=== PATIENT | female | born 1985 | race Caucasian/White ===

== ENCOUNTER → 2019-09-05 | Outpatient (REF) | payer OTHER ==
[~2019-09-05] MED LIST: ASPI81TA85 PO; MIRE1IUD IU; SOLUMEDROL IV
[2019-09-05 20:19] LABS: FOLATE > 24.0 NG/ML; RHEUMATOID FACTOR QUANT < 10.0 IU/ML (<15.0); TOTAL PROTEIN 7.2 GM/DL (6.4-8.2); VITAMIN B12 LEVEL 251 PG/ML
[2019-09-10 10:55] LABS: ALBUMIN 4.59 GM/DL (3.29-5.55); ALBUMIN % 63.7 % (55.8-66.1); ALPHA-1-GLOBULIN % 3.8 % (2.9-4.9); ALPHA-1-GLOBULINS 0.27 GM/DL (0.17-0.41); ALPHA-2-GLOBULINS 0.56 GM/DL (0.42-0.99); ALPHA-2-GLOBULINS % 7.8 % (7.1-11.8); BETA-1-GLOBULINS 0.41 GM/DL (0.28-0.60); BETA-1-GLOBULINS % 5.7 % (4.7-7.2); BETA-2-GLOBULINS 0.32 GM/DL (0.19-0.55); BETA-2-GLOBULINS % 4.5 % (3.2-6.5); GAMMA GLOBULIN % 14.5 % (11.1-18.8); GAMMA GLOBULINS 1.04 GM/DL (0.65-1.58)
[2019-09-10 11:18] LABS: DRVV SCREEN 35.9 SEC
[2019-09-10 11:19] LABS: PTT LUPUS TYPE ANTICOAG SCREEN 0.9 (0-1.2)
[2019-09-13 14:12] LABS: ACETYLCHOLINE RCPTOR BINDING A < 0.03 nmol/L (0.00-0.24); ACETYLCHOLINE RCPTOR BLOCK AB 17 % (0-25); ACETYLCHOLINE RCPTOR MODULATIN <12 % (0-20); ANCA-ATYPICAL <1:20 titer (Neg:<1:20); ANGIOTENSIN 1 CONVERTING ENZYM 43 U/L (14-82); ANTI DS-DNA AB Negative (Negative); ANTINUCLEAR ANTIBODIES DIRECT Negative (Negative); CYTOPLASMIC NEUTROP AB ANCA-C <1:20 titer (Neg:<1:20); Lyme Disease IgG/IgM Antibodie <0.91 ISR (0.00-0.90); Lyme Disease IgM Ab Quantitati <0.80 index (0.00-0.79); PERINUCLEAR AB ANCA-P <1:20 titer (Neg:<1:20); SJOGREN'S ANTI SS-A <0.2 AI (0.0-0.9); SJOGREN'S ANTI SS-B <0.2 AI (0.0-0.9); VITAMIN B1 LEVEL WHOLE BLOOD 155.8 nmol/L (66.5-200.0); VITAMIN B6,PYRIDOXAL PHOSPHATE 9.9 ug/L (2.0-32.8); VITAMIN E(ALPHA TOCOPHEROL) 7.9 mg/L (5.9-19.4); VITAMIN E(GAMMA TOCOPHEROL) 1.1 mg/L (0.7-4.9)
== END ==
LOC: M LABNEURO 15:42
PROVIDERS: ATTEND Psychiatry & Neurology Neurology
DX: G35 Multiple sclerosis (principal); H53.2 Diplopia

== ENCOUNTER 2019-09-09 16:24 | Outpatient (CLI) | payer OTHER ==
[~2019-09-09] VITALS: Ht 160 cm; Wt 93.6 kg
[2019-09-09 16:45] VITALS: BP 124/72
[2019-09-09] MEDS ORDERED: methylPREDNISolone 1,000 MG, VIAL MATE ADAPTER 1 EACH in D5W 250 ML IV ONE (17:00)
[2019-09-09 18:20] VITALS: BP 128/63
[2019-09-10] MEDS ORDERED: MIRE1IUD IU (17:29)
[2019-09-10] MEDS ORDERED: ASPI81TA85 PO (17:29)
[2019-09-10] MEDS ORDERED: SOLUMEDROL IV (17:30)
== END 2019-09-09 18:20 | disposition home or self-care (01) ==
LOC: M INFU 16:24
PROVIDERS: ATTEND Psychiatry & Neurology Neurology
DX: G35 Multiple sclerosis (principal); Z88.0 Allergy status to penicillin
CPT/HCPCS: 96365; J2930

== ENCOUNTER → 2019-09-09 | Outpatient (REF) | payer OTHER ==
[2019-09-11 10:58] LABS: HEPATITIS B SURFACE ANTIBODY POSITIVE (POSITIVE)
== END ==
LOC: M LABNEURO 15:21
PROVIDERS: ATTEND Psychiatry & Neurology Neurology
DX: G35 Multiple sclerosis (principal)

== ENCOUNTER 2019-09-10 16:59 | Outpatient (CLI) | payer OTHER ==
[~2019-09-10] VITALS: Ht 160 cm; Wt 93.6 kg
[~2019-09-10 16:59] MED LIST changes: -ASPI81TA85 PO; -MIRE1IUD IU; -SOLUMEDROL IV; +methylPREDNISolone 1,000 MG, VIAL MATE ADAPTER 1 EACH in D5W 250 ML IV ONE
[2019-09-10 17:00] VITALS: BP 123/65
[2019-09-10] MEDS ORDERED: MIRE1IUD IU (17:29)
[2019-09-10] MEDS ORDERED: ASPI81TA85 PO (17:29)
[2019-09-10] MEDS ORDERED: SOLUMEDROL IV (17:30)
[2019-09-10 18:57] VITALS: BP 130/74
== END 2019-09-10 19:02 | disposition home or self-care (01) ==
LOC: M INFU 16:59
PROVIDERS: ATTEND Psychiatry & Neurology Neurology
DX: G35 Multiple sclerosis (principal)
CPT/HCPCS: 96365; 96366; J2930

== ENCOUNTER 2019-09-11 15:41 | Outpatient (CLI) | payer OTHER ==
[~2019-09-11] VITALS: Ht 160 cm; Wt 93.6 kg
[~2019-09-11 15:41] MED LIST changes: +ASPI81TA85 PO; +MIRE1IUD IU; +SOLUMEDROL IV; -methylPREDNISolone 1,000 MG, VIAL MATE ADAPTER 1 EACH in D5W 250 ML IV ONE
[2019-09-11 15:50] VITALS: BP 127/65
[2019-09-11] MEDS ORDERED: methylPREDNISolone 1,000 MG, VIAL MATE ADAPTER 1 EACH in D5W 250 ML IV ONE (16:00)
[2019-09-11 18:28] VITALS: BP 143/76
== END 2019-09-11 18:25 | disposition home or self-care (01) ==
LOC: M INFU 15:41
PROVIDERS: ATTEND Psychiatry & Neurology Neurology
DX: G35 Multiple sclerosis (principal)
CPT/HCPCS: 96365; 96366; J2930

== ENCOUNTER 2019-09-12 15:55 | Outpatient (CLI) | payer OTHER ==
[~2019-09-12] VITALS: Ht 160 cm; Wt 93.6 kg
[~2019-09-12 15:55] MED LIST changes: +methylPREDNISolone 1,000 MG, VIAL MATE ADAPTER 1 EACH in D5W 250 ML IV ONE
[2019-09-12 16:00] VITALS: BP 128/67
[2019-09-12 18:19] VITALS: BP 137/65
== END 2019-09-12 18:19 | disposition home or self-care (01) ==
LOC: M INFU 15:55
PROVIDERS: ATTEND Psychiatry & Neurology Neurology
DX: G35 Multiple sclerosis (principal); Z88.0 Allergy status to penicillin; Z88.1 Allergy status to other antibiotic agents
CPT/HCPCS: 96365; 96366; J2930

== ENCOUNTER 2019-09-13 15:18 | Outpatient (CLI) | payer OTHER ==
[~2019-09-13] VITALS: Ht 160 cm; Wt 93.6 kg
[~2019-09-13 15:18] MED LIST changes: -methylPREDNISolone 1,000 MG, VIAL MATE ADAPTER 1 EACH in D5W 250 ML IV ONE
[2019-09-13 15:30] VITALS: BP 139/67
[2019-09-13] MEDS ORDERED: methylPREDNISolone 1,000 MG, VIAL MATE ADAPTER 1 EACH in D5W 250 ML IV ONE (15:30)
[2019-09-13 17:17] VITALS: BP 152/74
[2019-09-13 18:04] VITALS: BP 162/77
== END 2019-09-13 18:05 | disposition home or self-care (01) ==
LOC: M INFU 15:18
PROVIDERS: ATTEND Psychiatry & Neurology Neurology
DX: G35 Multiple sclerosis (principal); Z88.0 Allergy status to penicillin
CPT/HCPCS: 96365; 96366; J2930

== ENCOUNTER → 2019-11-15 | Outpatient (CLI) | payer OTHER ==
--- NOTE | 2019-11-29 03:52 | ECWPNPC ---
PATIENT NAME: HARJINDER PAGAN : 1985 GENDER: FEMALE VISIT DATE: 11/15/2019 DISCHARGE DATE: 11/15/19 1449 VISIT LOCKED DATE TIME: PHYSICIAN: BEBA VELASQUEZ MD RESOURCE: BEBA VELASQUEZ MD REASON FOR APPOINTMENT 1. SPINAL TAP PRE-OP HISTORY OF PRESENT ILLNESS HISTORY OF PRESENT ILLNESS: PAIN THE PATIENT DESCRIBES THE PAIN... 34-YEAR-OLD FEMALE PATIENT WITH A HISTORY OF NEUROLOGICAL CHANGES WITH HER VISION. THE PATIENT STATES THAT SHE SAW AN BILINGUAL TRAINER IN AUGUST OF 2019, BUT SHE CLAIMS THE BILINGUAL TRAINER STATED THAT SHE HAD 20/20 VISION IN SPITE OF HER SENSING A LOSS OF VISION. THE PATIENT STATES THAT VISION IN HER LEFT EYE IS AFFECTED, AND THAT SHE CAN SEE WITHOUT DIFFICULTY WITH HER RIGHT EYE. SHE SAYS THE VISION LOSS IS AFFECTING HER ABILITY TO PERFORM DAILY ACTIVITIES SUCH READING. THE PATIENT DOES NOT REPORT ANY DIFFICULTIES WITH HER BALANCE. THE PATIENT WAS REFERRED TO OUR CLINIC BY DR. METCALF FOR A SPINAL TAP. SHE MENTIONS THAT SHE HAS BEEN SUFFERING WITH NECK AND LOW BACK PROBLEMS FOR MANY YEARS AND HAS "ISSUES ROTATING ARMS." THE PATIENT STATES THAT SHE HAS NO PAIN OR NUMBNESS IN HER LEGS. PATIENT DENIES UNEXPLAINABLE WEIGHT LOSS, FEVER, CHILLS, NEW CHANGES IN HER URINARY OR BOWEL CONTROL. FALL RISK SCREENING: SCREENING :NO FALLS REPORTED IN THE LAST YEAR CURRENT MEDICATIONS TAKING MIRENA (52 MG) 20 MCG/24HR INTRAUTERINE DEVICE DIRECTED INTRAUTERINE MEDICATION LIST REVIEWED AND RECONCILED WITH THE PATIENT PAST MEDICAL HISTORY MULTIPLE SCLEROSIS CHRONIC LOW BACK PAIN ALLERGIES PENICILLIN (FOR ALLERGIES USE ONLY): ANAPHYLAXIS - ALLERGY AMOXICILLIN: ANAPHYLAXIS - ALLERGY SURGICAL HISTORY APPENDECTOMY FAMILY HISTORY FATHER: ALIVE, DIAGNOSED WITH HYPERTENSION MOTHER: ALIVE, DIABETES, HYPERTENSION, OTHER MALIGNANT NEOPLASM OF UNSPECIFIED SITE 1 BROTHER(S) , 1 SISTER(S) - HEALTHY. 2 SON(S) , 1 DAUGHTER(S) - HEALTHY. MOTHER LUNG CANCER. SOCIAL HISTORY GENERAL: TOBACCO USE ARE YOU A:CURRENT SMOKER ARE YOU INTERESTED IN QUITTING?THINKING ABOUT QUITTING COUNSELED THE PATIENT ON SMOKING CESSATION, EDUCATION [id number]/24/2020 HOW MANY CIGARETTES A DAY DO YOU SMOKE?5 OR LESS LATEX QUESTIONNAIRE LATEX ALLERGY : HAVE YOU EVER DEVELOPED ANY TYPE OF REACTION AFTER HANDLING LATEX PRODUCTS SUCH RUBBER GLOVES, CONDOMS, DIAPHRAGMS, BALLOONS, SOCKS, OR UNDERWEAR?NO LATEX ALLERGY : HAVE YOU EVER DEVELOPED ANY TYPE OF REACTION DURING OR AFTER DENTAL APPOINTMENT, VAGINAL/RECTAL EXAMINATION, SURGICAL PROCEDURE, OR ANY OTHER EXPOSURE?NO LATEX RISK : HAVE YOU EVER HAD ANY DIFFICULTY BREATHING OR HIVES AFTER EATING OR HANDLING ANY FRUITS, OR VEGETABLES; SUCH KIWI, BANANAS, STONE FRUITS, OR CHESTNUTSNO LATEX RISK : DO YOU HAVE A PREVIOUS PERSONAL HISTORY OF MORE THAN NINE SURGERIES, SPINA BIFIDA, OR REPEATED CATHERIZATIONS? NO LATEX RISK : ARE YOU FREQUENTLY EXPOSED TO LATEX PRODUCTS IN YOUR OCCUPATION?NO DATE ASKED : 11/15/2019 CAFFEINE CAFFEINE USE?YES HOW OFTEN AND HOW MUCH? COFFEE 2 CUPS DAILY DIET: REGULAR. EPISCOPALIAN EPISCOPALIAN NO BUDDHIST BELIEFS THAT WOULD IMPACT HEALTH CARE. LANGUAGE LANGUAGES SPOKEN:[place] ALCOHOL SCREENING DID YOU HAVE A DRINK CONTAINING ALCOHOL IN THE PAST YEAR?YES HOW OFTEN DID YOU HAVE A DRINK CONTAINING ALCOHOL IN THE PAST YEAR?MONTHLY OR LESS (1 POINT) HOW MANY DRINKS DID YOU HAVE ON A TYPICAL DAY WHEN YOU WERE DRINKING IN THE PAST YEAR?1 OR 2 (0 POINTS) HOW OFTEN DID YOU HAVE SIX OR MORE DRINKS ON ONE OCCASION IN THE PAST YEAR?NEVER (0 POINTS) POINTS1 INTERPRETATIONNEGATIVE RECREATIONAL DRUG USE DRUG USE?NO SEXUAL HX HAD SEX IN THE LAST 12 MONTHS (VAGINAL, ORAL, OR ANAL)?YES WITHMEN ONLY USE PROTECTION?NO HAVE YOU EVER HAD AN STD?NO LEARNING BARRIERS / SPECIAL NEEDS BARRIERS TO LEARNING?NO HEARING IMPAIRED?NO VISION IMPAIRED?NO COGNITIVELY IMPAIRED?NO READINESS TO LEARN?YES LEARNING PREFERENCES?NO LEARNING CAPABILITIES PRESENT?YES EMOTIONAL BARRIERS?NO SPECIAL DEVICES?NO SOFTWARE QA SYSTEM SPECIALIST NEEDED?NO HOSPITALIZATION/MAJOR DIAGNOSTIC PROCEDURE E COLI @ [facility] 2010 REVIEW OF SYSTEMS REVIEWED BY: PROVIDER: BEBA VELASQUEZ MD . CONSTITUTIONAL: ANY CHANGE IN YOUR MEDICAL CONDITION? NO . CHILLS NO . FEVER NO . INFECTION: DO YOU HAVE NEW INFECTIONS? NO . DO YOU HAVE HISTORY OF MRSA? NO . MUSCULOSKELETAL: ANY NEW PATTERNS OF PAIN OR NUMBNESS? NO . GASTROENTEROLOGY: ANY NEW CHANGE IN BOWEL CONTROL? NO . GENITOURINARY: ANY NEW CHANGE IN BLADDER CONTROL? NO . IS THERE A CHANCE YOU COULD BE ? NO . HEMATOLOGY/LYMPH: DO YOU TAKE ANY BLOOD THINNERS? (FOR EXAMPLE- COUMADIN, PLAVIX, AGGRENOX, PLATEL, PRADAXA, OR XARELTO) NO . WHEN WAS YOUR LAST DOSE? DATE: TIME: . NEUROLOGY: HAVE YOU FALLEN IN THE PAST 12 MONTHS? NO . ANY NEW EXTREMITY NUMBNESS OR WEAKNESS? NO . CARDIOLOGY: DO YOU HAVE A PACEMAKER OR DEFIBRILLATOR? NO . RESPIRATORY: HAVE YOU BEEN SICK IN THE PAST WEEK? NO . FEVER NO . FLU LIKE SYMPTOMS? NO . COUGH NO . INTEGUMENTARY: DO YOU HAVE ANY RASHES OR OPEN SORES? NO . ALLERGIC/IMMUNO: ARE YOU ALLERGIC TO IV DYE? NO . ANY NEW ALLERGIES? NO . PSYCHIATRIC: DO YOU HAVE THOUGHTS OF HURTING YOURSELF OR SOMEONE ELSE? NO . ARE YOU ABUSED, NEGLECTED, OR IN AN UNSAFE ENVIRONMENT? NO . ENDOCRINOLOGY: ARE YOU DIABETIC? NO . OTHER: DO YOU NEED ANY PRESCRIPTIONS? NO . IF YES, PLEASE LIST: ____ . ANY NEW PROBLEMS WITH YOUR MEDICATIONS? NO . WHEN DID YOU LAST EAT? ____ . WHEN DID YOU LAST DRINK? ____ . WHAT DID YOU LAST DRINK? ____ . NAME OF PERSON DRIVING YOU HOME? ____ . DO YOU HAVE ANY OTHER QUESTIONS OR CONCERNS NO . VITAL SIGNS WT 210 LBS, HT 63 IN, BMI 37.20 INDEX, BP 123/79 MM HG, HR 72 /MIN, RR 17 /MIN, TEMP 98.5 F, OXYGEN SAT % 97, SAFE IN ENV? (Y/N) YM. RAINER PRUITT, JOSIE II @ 1323. EXAMINATION GENERAL EXAMINATION: PATIENT IS ALERT O X 3 AND COOPERATIVE. LUNGS CLEAR, TO AUSCULTATION. HEART: NO MURMURS OR GALLOPS; FACIAL CRANIAL NERVES ARE GROSSLY NORMAL. GOOD SYMMETRY OF FACIAL MUSCLE MOVEMENT. NORMAL VISUAL HUGHES. THERE IS NO WEAKNESS IN THE PATIENT'S LEGS. THE PATIENT IS ABLE TO LIFT HER UPPER EXTREMITIES TO THE SHOULDER LEVEL. THERE IS TENDERNESS IN THE LOW BACK OVER THE PARASPINAL MUSCLES. ASSESSMENTS NEUROLOGICAL SYMPTOMS - R29.90 (PRIMARY) R/O MULTIPLE SCLEROSIS. TREATMENT OTHERS CLINICAL NOTES: WE DISCUSSED SEVERAL ISSUES WITH MS. PAGAN'S PAIN MANAGEMENT CASE. WE WILL MOVE FORWARD WITH A SPINAL TAP WITH IV SEDATION AT THIS TIME. PATIENT WOULD LIKE TO MOVE FORWARD WITH IV SEDATION DUE TO DISCOMFORT, PAIN AND ANXIETY ASSOCIATED WITH THE PROCEDURE. INSTRUCTIONS WERE GIVEN, QUESTIONS WERE ANSWERED, PATIENT REPORTS UNDERSTANDING AND AGREES WITH THE PLAN. I, CYNTHIA GRIFFITHS, DOCUMENTED THE ABOVE INFORMATION ACTING A SCRIBE FOR DR. VELASQUEZ. I HAVE REVIEWED THE ABOVE DOCUMENT, WRITTEN BY STEPHEN QUINTERO, AND I VERIFY THAT IT IS ACCURATE. . PROCEDURE CODES FA211 ESTABILISHED PATIENT [facility] FACILITY CHARGE [id number] CURRENT MEDS W/DOSAGES DOCUMENTED G8730 PAIN ASSESS POS TOOL F/U PLAN DOC DISPOSITION & COMMUNICATION FOLLOW UP REASON: S TAP W/ IV SEDATE, BOOKED NEXT WEEK ELECTRONICALLY SIGNED BY BEBA VELASQUEZ MD, MD ON 11/28/2019 AT 04:57 PM EST DISCLAIMER : THIS IS A VISIT SUMMARY EXTRACTED FROM THE [employer] CHART. IT IS NOT A COPY OF THE [employer] PROGRESS NOTE. YASH
== END ==
LOC: M PAIN 13:15
PROVIDERS: ATTEND Anesthesiology
DX: R29.90 Unspecified symptoms and signs involving the nervous system (principal); G35 Multiple sclerosis; F17.210 Nicotine dependence, cigarettes, uncomplicated; Z88.0 Allergy status to penicillin; Z88.1 Allergy status to other antibiotic agents; Z79.899 Other long term (current) drug therapy

== ENCOUNTER → 2019-11-18 | Outpatient (CLI) | payer OTHER ==
[~2019-11-18] MED LIST changes: +LIDOCAINE 1% SDV INJ 30 ML VIAL As Ordered ONE; +MIDAZOLAM INJ 2 MG/2 ML VIAL (J2250) As Ordered ONE; +fentaNYL 100 MCG/2 ML INJECTION (J3010) As Ordered ONE
[2019-11-18 16:36] LABS: CSF TUBE# GLU TUBE 1; CSF TUBE# TP TUBE 1; GLUCOSE CSF 49 MG/DL (40-75); TOTAL PROTEIN,CSF 28 MG/DL (15-45)
[2019-11-18 16:43] LABS: APPEARANCE, CSF CLEAR (CLEAR); COLOR, CSF COLORLESS (COLORLESS); CSF TUBE# CELL CNT TUBE 3
--- NOTE | 2019-11-29 03:53 | ECWPNPC ---
PATIENT NAME: HARJINDER PAGAN : 1985 GENDER: FEMALE VISIT DATE: 11/18/2019 DISCHARGE DATE: 11/18/19 1603 VISIT LOCKED DATE TIME: PHYSICIAN: BEBA VELASQUEZ MD RESOURCE: BEBA VELASQUEZ MD REASON FOR APPOINTMENT 1. SPINAL TAP - CLEARANCE RECEIVED HISTORY OF PRESENT ILLNESS HISTORY OF PRESENT ILLNESS: PAIN THE PATIENT DESCRIBES THE PAIN... FALL RISK SCREENING: SCREENING :NO FALLS REPORTED IN THE LAST YEAR CURRENT MEDICATIONS TAKING MIRENA (52 MG) 20 MCG/24HR INTRAUTERINE DEVICE DIRECTED INTRAUTERINE MEDICATION LIST REVIEWED AND RECONCILED WITH THE PATIENT PAST MEDICAL HISTORY MULTIPLE SCLEROSIS CHRONIC LOW BACK PAIN ALLERGIES PENICILLIN (FOR ALLERGIES USE ONLY): ANAPHYLAXIS - ALLERGY AMOXICILLIN: ANAPHYLAXIS - ALLERGY SURGICAL HISTORY APPENDECTOMY BILATERAL CARPAL TUNNEL RELEASE (APRIL AND MAY) 2018 FAMILY HISTORY FATHER: ALIVE, DIAGNOSED WITH HYPERTENSION MOTHER: ALIVE, DIABETES, HYPERTENSION, OTHER MALIGNANT NEOPLASM OF UNSPECIFIED SITE 1 BROTHER(S) , 1 SISTER(S) - HEALTHY. 2 SON(S) , 1 DAUGHTER(S) - HEALTHY. MOTHER LUNG CANCER. SOCIAL HISTORY GENERAL: TOBACCO USE ARE YOU A:CURRENT SMOKER HOW MANY CIGARETTES A DAY DO YOU SMOKE?5 OR LESS ARE YOU INTERESTED IN QUITTING?THINKING ABOUT QUITTING COUNSELED THE PATIENT ON SMOKING CESSATION, EDUCATION [id number]/24/2020 PAIN CLINIC PFS, CLERGY, PUBLIC HEALTH REFERRALS HAS THE PATIENT BEEN EDUCATED REGARDING HIS/HER PLAN OF CARE?YES HAS THE PATIENT BEEN EDUCATED REGARDING PAIN, THE RISK FOR PAIN, THE IMPORTANCE OF EFFECTIVE PAIN MANAGEMENT, AND THE PAIN ASSESSMENT PROCESS?YES LATEX QUESTIONNAIRE LATEX ALLERGY : HAVE YOU EVER DEVELOPED ANY TYPE OF REACTION AFTER HANDLING LATEX PRODUCTS SUCH RUBBER GLOVES, CONDOMS, DIAPHRAGMS, BALLOONS, SOCKS, OR UNDERWEAR?NO LATEX ALLERGY : HAVE YOU EVER DEVELOPED ANY TYPE OF REACTION DURING OR AFTER DENTAL APPOINTMENT, VAGINAL/RECTAL EXAMINATION, SURGICAL PROCEDURE, OR ANY OTHER EXPOSURE?NO LATEX RISK : HAVE YOU EVER HAD ANY DIFFICULTY BREATHING OR HIVES AFTER EATING OR HANDLING ANY FRUITS, OR VEGETABLES; SUCH KIWI, BANANAS, STONE FRUITS, OR CHESTNUTSNO LATEX RISK : DO YOU HAVE A PREVIOUS PERSONAL HISTORY OF MORE THAN NINE SURGERIES, SPINA BIFIDA, OR REPEATED CATHERIZATIONS? NO LATEX RISK : ARE YOU FREQUENTLY EXPOSED TO LATEX PRODUCTS IN YOUR OCCUPATION?NO DATE ASKED : 11/15/2019 CAFFEINE CAFFEINE USE?YES HOW OFTEN AND HOW MUCH? COFFEE 2 CUPS DAILY ADVANCE DIRECTIVE ADVANCE DIRECTIVE DISCUSSED WITH PATIENT:YES PT DOES NOT HAVE HCP AND DECLINES INFO ON IT TODAY, STATES SHE RECEIVED HCP PACKET FROM PRIMARY DOCTOR THIS MORNING AND WANTS TO REVIEW IT AT HOME. 11/18/19 DIET: REGULAR. MU-ISM MU-ISM NO RESTORATIONIST BELIEFS THAT WOULD IMPACT HEALTH CARE. LANGUAGE LANGUAGES SPOKEN:MICRONESIAN ALCOHOL SCREENING DID YOU HAVE A DRINK CONTAINING ALCOHOL IN THE PAST YEAR?YES HOW OFTEN DID YOU HAVE SIX OR MORE DRINKS ON ONE OCCASION IN THE PAST YEAR?NEVER (0 POINTS) HOW MANY DRINKS DID YOU HAVE ON A TYPICAL DAY WHEN YOU WERE DRINKING IN THE PAST YEAR?1 OR 2 (0 POINTS) HOW OFTEN DID YOU HAVE A DRINK CONTAINING ALCOHOL IN THE PAST YEAR?MONTHLY OR LESS (1 POINT) POINTS1 INTERPRETATIONNEGATIVE RECREATIONAL DRUG USE DRUG USE?NO SEXUAL HX HAD SEX IN THE LAST 12 MONTHS (VAGINAL, ORAL, OR ANAL)?YES WITHMEN ONLY USE PROTECTION?NO HAVE YOU EVER HAD AN STD?NO LEARNING BARRIERS / SPECIAL NEEDS BARRIERS TO LEARNING?NO HEARING IMPAIRED?NO VISION IMPAIRED?NO COGNITIVELY IMPAIRED?NO READINESS TO LEARN?YES LEARNING PREFERENCES?NO LEARNING CAPABILITIES PRESENT?YES EMOTIONAL BARRIERS?NO SPECIAL DEVICES?NO STAIR BUILDER NEEDED?NO REVIEWED WITH PATIENT 11/18/19 1313 BV. HOSPITALIZATION/MAJOR DIAGNOSTIC PROCEDURE E COLI @ [facility] 2010 REVIEW OF SYSTEMS REVIEWED BY: PROVIDER: . CONSTITUTIONAL: ANY CHANGE IN YOUR MEDICAL CONDITION? NO . CHILLS NO . FEVER NO . INFECTION: DO YOU HAVE NEW INFECTIONS? NO . DO YOU HAVE HISTORY OF MRSA? NO . MUSCULOSKELETAL: ANY NEW PATTERNS OF PAIN OR NUMBNESS? NO . GASTROENTEROLOGY: ANY NEW CHANGE IN BOWEL CONTROL? NO . GENITOURINARY: ANY NEW CHANGE IN BLADDER CONTROL? NO . IS THERE A CHANCE YOU COULD BE ? NO . HEMATOLOGY/LYMPH: DO YOU TAKE ANY BLOOD THINNERS? (FOR EXAMPLE- COUMADIN, PLAVIX, AGGRENOX, PLATEL, PRADAXA, OR XARELTO) NO . WHEN WAS YOUR LAST DOSE? DATE: TIME: . NEUROLOGY: HAVE YOU FALLEN IN THE PAST 12 MONTHS? NO . ANY NEW EXTREMITY NUMBNESS OR WEAKNESS? NO . CARDIOLOGY: DO YOU HAVE A PACEMAKER OR DEFIBRILLATOR? NO . RESPIRATORY: HAVE YOU BEEN SICK IN THE PAST WEEK? PT STATES SHE WAS FEELING SICK ABOUT 2 WEEKS AGO, DENIES ANY ANTIBIOTIC USE AND STATES SYMPTOMS HAVE RESOLVED AND IS FEELING BETTER . FEVER NO . FLU LIKE SYMPTOMS? NO . COUGH NO . INTEGUMENTARY: DO YOU HAVE ANY RASHES OR OPEN SORES? NO . ALLERGIC/IMMUNO: ARE YOU ALLERGIC TO IV DYE? NO . ANY NEW ALLERGIES? NO . PSYCHIATRIC: DO YOU HAVE THOUGHTS OF HURTING YOURSELF OR SOMEONE ELSE? NO . ARE YOU ABUSED, NEGLECTED, OR IN AN UNSAFE ENVIRONMENT? NO . ENDOCRINOLOGY: ARE YOU DIABETIC? NO . OTHER: DO YOU NEED ANY PRESCRIPTIONS? NO . IF YES, PLEASE LIST: ____ . ANY NEW PROBLEMS WITH YOUR MEDICATIONS? NO . WHEN DID YOU LAST EAT? 11/17/19 1830 . WHEN DID YOU LAST DRINK? 11/18/19 0930 . WHAT DID YOU LAST DRINK? WATER . NAME OF PERSON DRIVING YOU HOME? RIDDHI BRYANT . DO YOU HAVE ANY OTHER QUESTIONS OR CONCERNS NO . VITAL SIGNS WT 207.6 LBS, HT 63 IN, BMI 36.77 INDEX, BP 132/73 MM HG, HR 72 /MIN, RR 18 /MIN, TEMP 97.6 F, OXYGEN SAT % 95%, NA INITIALS AW 1300, REVIEWED BY: BV. ASSESSMENTS ENCOUNTER FOR LUMBAR PUNCTURE - Z01.89 (PRIMARY) MS PROTOCOL. TREATMENT ENCOUNTER FOR LUMBAR PUNCTURE CLINICAL NOTES: SPINAL TAP WITH IV SEDATION. PLEASE SEE [employer].. PROCEDURE CODES 91374 MOD SED SAME PHYS/QHP 5/>YRS 14[address] MOD SED SAME PHYS/[place] [address] LUMBAR PUNCTURE DISPOSITION & COMMUNICATION FOLLOW UP REASON: F/UP WITH NEUROLOGIST. CALL NEEDED. ELECTRONICALLY SIGNED BY BEBA VELASQUEZ MD, MD ON 11/28/2019 AT 05:19 PM EST DISCLAIMER : THIS IS A VISIT SUMMARY EXTRACTED FROM THE [email or web address] CHART. IT IS NOT A COPY OF THE [email or web address] PROGRESS NOTE. YASH
== END ==
LOC: M PAIN 13:00
PROVIDERS: ATTEND Anesthesiology
DX: Z01.89 Encounter for other specified special examinations (principal); G35 Multiple sclerosis; F17.210 Nicotine dependence, cigarettes, uncomplicated; Z88.0 Allergy status to penicillin; Z88.1 Allergy status to other antibiotic agents; Z79.899 Other long term (current) drug therapy
CPT/HCPCS: 36415; 62270; 82784; 82945; 83916; 84157; 87070; 87102; 87205; 87252; 87483; 88108; 88313; 89050; 99152; 99153; J2250; J3010

== ENCOUNTER → 2021-05-24 | Outpatient (CLI) | payer BC ==
[~2021-05-24] MED LIST changes: -ASPI81TA85 PO; +ASPI81TA86 PO; -LIDOCAINE 1% SDV INJ 30 ML VIAL As Ordered ONE; -MIDAZOLAM INJ 2 MG/2 ML VIAL (J2250) As Ordered ONE; -fentaNYL 100 MCG/2 ML INJECTION (J3010) As Ordered ONE
--- NOTE | 2021-05-24 10:49 | ECGEPIP ---
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
== END ==
LOC: M EKG 10:15
PROVIDERS: ATTEND Psychiatry & Neurology Neurology
DX: G35 Multiple sclerosis (principal)